=== PATIENT | female | born 1990 | race Caucasian/White ===

== ENCOUNTER 2019-03-08 08:27 | Emergency (ER) | payer MEDICAID, OTHER ==
[~2019-03-08] VITALS: Ht 157.5 cm; Wt 123.2 kg
[~2019-03-08 08:27] MED LIST: CEPH-443 PO; DOCU-144 PO; FER325 PO
[2019-03-08 08:29] VITALS: Ht 157.5 cm; Wt 123.2 kg
[2019-03-08] MEDS ORDERED: SOD CHLORIDE 0.9% 1,000 ML IV STA (08:55)
[2019-03-08 09:54] VITALS: BP 129/74; PULSE 70; RESP 18
== END 2019-03-08 09:56 | disposition home or self-care (01) ==
LOC: FTE 08:27
DX: D64.9 Anemia, unspecified (principal)
CPT/HCPCS: 36415; 80053; 81001; 81025; 83690; 85025; 96360; J7030; Z7502; 81003